=== PATIENT | female | born 1990 | race Caucasian/White ===

== ENCOUNTER 2024-04-26 16:24 | Day surgery (SDC) | payer OTHER ==
[2024-04-26 18:27] LABS: INR 1.06; PROTHROMBIN TIME 11.5 SECONDS (9.0-11.5)
[2024-04-26] MEDS ORDERED: POVIDONE-IODINE 118 ML BOTT TOP ONE (19:46)
[2024-04-26] MEDS ORDERED: CEFOXITIN SODIUM 2,000 MG VIAL IV ONE (19:55)
== END 2024-04-27 04:15 | disposition home or self-care (01) ==
LOC: CIR.AMB 16:24
PROVIDERS: ATTEND Obstetrics & Gynecology Maternal & Fetal Medicine
DX: O02.1 Missed abortion (principal); E03.9 Hypothyroidism, unspecified; J32.9 Chronic sinusitis, unspecified